=== PATIENT | male | born 1960 | race Caucasian/White ===

== ENCOUNTER → 2019-12-01 | Outpatient (CLI) | payer OTHER, MEDICAID ==
[~2019-12-01] MED LIST: DICY20TA30 PO; ESCITALOPRAM OX10 MG PO; IOHEXOL 240 MG/ML 50ML VIAL. ONE; IOHEXOL 300 MG/ML 75 ML VIAL. IV ONE; NALT50TA PO
--- NOTE | 2019-12-01 19:02 | RAD ---
EXAM: CT Chest, Abdomen, and Pelvis with IV contrast INDICATION: Metastatic adenocarcinoma, restaging. TECHNIQUE: Multi-detector row CT images were acquired from the thoracic inlet through the ischial tuberosities with the use of IV contrast. Sagittal and coronal images were acquired from the transaxial data. All CT scans performed at this facility utilize dose optimization techniques as appropriate to the exam, including the following: Automated exposure control and adjustment of the mA and/or KV according to patient size (this includes techniques or standardized protocols for targeted exams where dose is indication/reason for exam). IV CONTRAST: Administered ORAL CONTRAST: Administered DLP 2498 mGycm COMPARISON: None FINDINGS: CHEST: CARDIOVASCULAR: Coronary calcifications. Aortic valvular calcifications. Otherwise unremarkable. MEDIASTINUM & TEJ: Interval decrease in size of mediastinal adenopathy with previously noted 2.1 cm right paratracheal lymph node now measuring 6 mm and prevascular lymph node previously measuring 1.2 cm now measuring 5 mm. LUNGS: Interval decrease in previously reported 1.5 cm solid nodule in the peripheral right upper lobe, now measuring 1.2 x 0.7 x 0.7 cm (compared with 1.3 x 1.0 x 1.2 cm by my measurements). No new pulmonary nodules. Mild linear atelectasis or scarring in the right lower lobe is noted. There are multiple ill-defined tiny groundglass densities in upper lobe predominant distribution primarily apparent.. PLEURAL SPACE: No pleural effusions or pneumothorax. OSSEOUS & SOFT TISSUE: Unremarkable ABDOMEN/PELVIS: LIVER: Diffuse hepatic steatosis. No masses. BILIARY SYSTEM: Gallbladder is unremarkable. Bile ducts are not dilated. PANCREAS: Unremarkable SPLEEN: Unremarkable ADRENALS: Unremarkable KIDNEYS & URETERS: Unremarkable BLADDER: Partially collapsed. Mild perivesical soft tissue stranding. REPRODUCTIVE ORGANS: Unremarkable GASTROINTESTINAL: The stomach, small bowel, and colon are unremarkable. The appendix is normal. MESENTERY/PERITONEUM/RETROPERITONEUM: Unremarkable VASCULAR: Unremarkable LYMPH NODES: No adenopathy OSSEOUS & SOFT TISSUES: Similar appearance to an osteolytic lesion involving the right hemipelvis with bony destruction of the superior and inferior right pubic rami as well as the right pubic symphysis. Right iliac sclerotic lesion along the sacroiliac joint measuring 1.4 cm is unchanged. No new bone lesions. Fat-containing infraumbilical hernia with a 1.3 cm neck.. IMPRESSION: 1. Evidence of a positive treatment response in the lungs with decrease in mediastinal adenopathy and in size of a right upper lobe pulmonary nodule. The groundglass tiny nodular densities in the lungs could represent posttreatment effects. 2. 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 No findings suspicious for disease progression. Electronically signed by: Elmer Segura MD (12/01/2019 6:59 PM) [facility]
== END | disposition home or self-care (01) ==
LOC: CT 08:57
PROVIDERS: ATTEND Internal Medicine Hematology & Oncology
DX: C79.89 Secondary malignant neoplasm of other specified sites (principal); I25.10 Atherosclerotic heart disease of native coronary artery without angina pectoris; R59.0 Localized enlarged lymph nodes; R91.1 Solitary pulmonary nodule
CPT/HCPCS: 71260; 74177; Q9967

== ENCOUNTER → 2020-04-14 | Outpatient (CLI) | payer OTHER, MEDICAID ==
[~2020-04-14] MED LIST changes: -IOHEXOL 240 MG/ML 50ML VIAL. ONE; +IOHEXOL 240 MG/ML 50ML VIAL. PO ONE
--- NOTE | 2020-04-14 10:41 | RAD ---
CT CHEST ABD PELVIS W/CONTRAST Indication: Metastatic adenocarcinoma Technique: Postcontrast CT imaging was performed of the chest, abdomen, pelvis, multiplanar reconstruction images submitted. Oral contrast was also given. One or more of the following individualized dose reduction techniques were utilized for this examination: 1. Automated exposure control 2. Adjustment of the mA and/or kV according to patient size 3. Use of iterative reconstruction technique. Comparison: December 01, 2019 CHEST: Findings: There is residual peripheral right upper lobe nodule although less dense and somewhat smaller on this exam, measures about 1 cm transverse by 0.6 cm AP by 0.4 cm cc. This previously measured about 1.3 cm transverse by 0.7 cm AP by 0.6 cm cc. There is residual although decreased right lower lobe atelectasis. Linear peripheral density of the anterior right upper lobe probably a component of atelectasis is also slightly less apparent. There are some subtle foci of patchy groundglass density of the right upper lobe stable to slightly less apparent. There is new focus of subsolid left upper lobe density best seen image 31 series 3 about 0.7 cm in size. There is no pericardial or pleural fluid or pneumothorax. There is coronary calcification. Thoracic aortic caliber is within normal limits. No significantly enlarged nodes are identified of the chest. There is again degree of elevation of the right hemidiaphragm. IMPRESSION: 1. Previously seen right upper lobe peripheral nodule is somewhat smaller and less dense. There are residual foci of subtle groundglass density of the right upper lobe stable to slightly less apparent although new small subsolid focus of nodular density left upper lobe for which attention on follow-up advised. Abdomen pelvis FINDINGS: No new focal abnormality is identified of the liver, spleen, or pancreas. There is no adrenal nodularity. Gallbladder is present without significant focal abnormality identified by CT although more distended on this exam. Both kidneys enhance, no hydronephrosis. There is scattered plaque of the abdominal aorta and branches. There is small fat-containing umbilical hernia, neck about 0.9 cm transverse and hernia sac about 1.9 cm transverse, no internal bowel. There is mild sigmoid diverticulosis. There is retained stool variably in the colon. Normal caliber appendix is visualized without adjacent inflammatory change. There is appearance of circumferential prominence of urinary bladder lawrence. There is again bony destructive lesion of the right pubic body extending to the inferior and superior right pubic rami with associated pathologic fractures of the superior and inferior pubic rami. There is fairly advanced L5-S1 degenerative disc disease, also spondylosis at this level. No new significantly enlarged nodes are identified of the abdomen or pelvis. There is similar nonspecific sclerotic lesion of the right iliac bone. IMPRESSION: 1.There is again bony destructive lesion of the right pubic body extending to the superior and inferior pubic rami with associated pathologic fractures. There is similar nonspecific sclerotic lesion of the right iliac bone. 2. There is appearance of nonspecific circumferential thickening of the urinary bladder lawrence, cystitis a consideration. 3. There is a small fat-containing umbilical hernia. Electronically signed by: Derian Loving MD (04/14/2020 10:38 AM) [id number]
--- NOTE | 2020-04-14 13:11 | RAD ---
BONE SCAN WHOLE BODY History: Adenocarcinoma, right groin pain Comparison: CT chest abdomen pelvis exam the same day and bone scan June 15, 2019 Findings: Whole body bone scan was performed, patient injected with 25 mCi technetium 99m MDP. There is again some radiotracer activity associated with the right pubic body and adjacent superior and inferior pubic rami, somewhat increased more laterally of the right superior vena cava ramus corresponding with lytic lesion as seen on CT, also pathologic fracture in this region. There is a tiny focus of increased radiotracer activity on the anterior view of 2 the right of the L5 vertebral body near the L5-S1 level difficult to visualize on other images and no definitive CT correlate. Symmetric radiotracer activity of the bilateral shoulders is likely degenerative in etiology. Small focus of activity near the right 7th costovertebral junction is similar. Impression: 1. There is some residual radiotracer activity associated with the right pubic body as well as right superior and inferior pubic pubic rami corresponding with lytic areas and pathologic fracture on CT, somewhat increased more laterally of the right superior pubic ramus compared with the previous bone scan. Small focus of radiotracer activity to the right of the L5-S1 junction is of uncertain etiology as no definitive CT correlate. Electronically signed by: Derian Loving MD (04/14/2020 1:08 PM) [id number]
== END ==
LOC: NM 08:14
PROVIDERS: ATTEND Internal Medicine Hematology & Oncology
DX: C79.9 Secondary malignant neoplasm of unspecified site (principal); M84.454A Pathological fracture, pelvis, initial encounter for fracture; M89.8X8 Other specified disorders of bone, other site; K42.9 Umbilical hernia without obstruction or gangrene; K57.30 Diverticulosis of large intestine without perforation or abscess without bleeding; M51.37 Other intervertebral disc degeneration, lumbosacral region
CPT/HCPCS: 71260; 74177; 78306; A9503; Q9966; Q9967